=== PATIENT | male | born 1940 | race Caucasian/White ===

== ENCOUNTER 2020-04-10 11:43 | Emergency (ER) | payer OTHER, BC ==
[~2020-04-10] VITALS: Ht 172.7 cm; Wt 88.5 kg
[~2020-04-10 11:43] MED LIST: ALEVE220 MG PO; COUMADIN 2 MG TA2 M1 PO; COUMADIN 5 MG TA5 M1 PO; DIOVAN HCT 80-1 EACH PO; FENOFIBRATE134 MG PO; FISH OIL 1,0001 EAC5 PO; GLIPIZIDE ER5 MG PO; GLIPIZIDE XL5 MG PO; GLUCOPHAGE1000 MG PO; GLUCOPHAGE500 MG PO; GLUCOSAMINE &1 EACH PO; GLUMETZA500 PO; HYZAAR 50-12.51 EACH PO; LEVOTHROID PO; LEVOTHROID150 MC1 PO; LEVOXYL150 MCG PO; LIPITOR 10 MG10 M1 PO; LORTAB 7.5/5001 TA3 PO; METFORMIN 500500 MG PO; MULTIPLE VITAM1 EAC1 PO; MULTIVITAMINS PO; PERCOCET 5-3251 EACH PO; TRILIPIX135 MG PO
[2020-04-10] MEDS ORDERED: MECLIZINE HCL25 MG PO (16:45)
[2020-04-10 17:09] VITALS: BP 141/87
--- NOTE | 2020-04-11 09:28 | EKG ---
[facility] [place] [address] ELECTROCARDIOGRAM REPORT Name: ALAN CHOWDARY Room #: DEP [facility]#: [id number] Admission: 04/10/20 Attend Phys: Discharge: 04/10/20 Date of : 44 Report #: [id number] THIS REPORT FOR: cc: Ralf Mandel MD, Rene P. MD Santiago, Patrick MD [facility] ~ THIS REPORT FOR: //name// [facility] ED Test Date: 2020-04-10 Test Time: 15:53:57 Pat Name: ALAN CHOWDARY Department: Room: Gender: Pulper Tender: [facility] : 1940 Requested By: Maggie Johns Order Number: [id number] MD: Darwin Hernandez Measurements Intervals [place] Rate: 58 P: 48 MT: 203 QRS: 6 QRSD: 106 T: 31 QT: 446 QTc: 439 Interpretive Statements Sinus rhythm Abnormal R-wave progression, early transition Compared to ECG 11/22/2011 08:20:38 Atrial premature complex(es) no longer present Myocardial infarct finding no longer present Electronically Signed On 04-11-2020 9:28:40 MILL WASHER by Darwin Hernandez [email or web address] <ELECTRONICALLY SIGNED> By: Darwin Hernandez MD, FACC 04/11/20 0928 1553 1553 Darwin Hernandez MD, FAC /EPI
== END 2020-04-10 16:58 | disposition home or self-care (01) ==
LOC: ER 11:43
DX: R42 Dizziness and giddiness (principal); I10 Essential (primary) hypertension; E11.9 Type 2 diabetes mellitus without complications; E78.5 Hyperlipidemia, unspecified; E03.9 Hypothyroidism, unspecified; Z79.899 Other long term (current) drug therapy

== ENCOUNTER → 2020-05-07 | Outpatient (CLI) | payer OTHER, BC ==
[~2020-05-07] MED LIST changes: +MECLIZINE HCL25 MG PO
== END ==
LOC: RAD 08:19
PROVIDERS: ATTEND Family Medicine
DX: I67.82 Cerebral ischemia (principal); G31.89 Other specified degenerative diseases of nervous system

== ENCOUNTER 2020-07-28 18:26 | Inpatient (IN) | payer OTHER, BC ==
[~2020-07-28] VITALS: Ht 172.7 cm; Wt 93.9 kg
[2020-07-28 18:28] VITALS: BP 128/73
[2020-07-28 19:16] LABS: ABSOLUTE NEUTROPHILS 5.4 thou/uL (1.4-8.2); BASOPHILS 0.5 % (0.0-2.0); EOSINOPHILS 0.3 % (0.0-3.0); HEMATOCRIT 40.9 % (42.0-52.0); HEMOGLOBIN 13.5 gm/dL (14.0-18.0); LYMPHOCYTES 18.4 % (24.0-44.0); MCH 27.5 pg (26.0-34.0); MCV 83.2 fL (80.0-100.0); PLATELET COUNT 166 thou/uL (150-400); POLYS 75.8 % (36.0-66.0); RBC 4.91 mil/uL (4.50-6.00); RDW 14.5 % (10.5-14.5); WBC 7.1 thou/uL (4.0-11.0)
[2020-07-28 19:30] LABS: ANION GAP 7 mmol/L (7-16); BUN 17 mg/dL (7-18); CALCIUM 8.8 mg/dL (8.5-10.1); CHLORIDE 99 mmol/L (98-107); CO2 26 mmol/L (21-32); CREATININE 0.8 mg/dL (0.7-1.3); GLUCOSE 129 mg/dL (74-106); POTASSIUM 3.7 mmol/L (3.5-5.1); SODIUM 132 mmol/L (136-145)
[2020-07-28 19:40] LABS: URINE BILIRUBIN NEGATIVE (Negative); URINE BLOOD 3+ (Negative); URINE CLARITY CLEAR; URINE COLOR YELLOW; URINE GLUCOSE-RANDOM* NEGATIVE (Negative); URINE KETONES NEGATIVE (Negative); URINE LEUKOCYTES-REFLEX TRACE (Negative); URINE NITRITE-REFLEX NEGATIVE (Negative); URINE PROTEIN (DIPSTICK) NEGATIVE (Negative)
[2020-07-28 19:41] LABS: ALBUMIN 3.8 g/dL (3.4-5.0); SGOT 19 U/L (15-37); SGPT 23 U/L (16-63); TOTAL BILIRUBIN 0.8 mg/dL (0.2-1.0); TOTAL PROTEIN 6.8 g/dL (6.4-8.2); TROPONIN-I <0.06 ng/mL (<0.06)
[2020-07-28 20:00] LABS: BACTERIA-REFLEX 1-9 Few /HPF (None Seen); CASTS None Seen /LPF (None Seen); CRYSTALS None Seen /LPF (None Seen); MUCUS 0-3 Light strn/LPF (None Seen); SQUAMOUS 0-3 Few /LPF (0-3); URINE RBC >20 Many /HPF (0-2); URINE WBC-REFLEX 0-5 Rare /HPF (0-5)
--- NOTE | 2020-07-28 21:25 | NUR ---
PTS DAUGHTER STATES SHE IS NOT HAPPY WITH HIS CARE. WILL NOT STATE WHY. IS REQUESTING A TRANSFER TO
[2020-07-29] VITALS (8 sets, daily range): BP systolic 94–120; BP diastolic 52–78
[2020-07-29] MEDS ORDERED: PROSCAR 5MG TABL5 M1 PO (02:42)
[2020-07-29] MEDS ORDERED: LEVO-T100 MCG PO (02:42)
[2020-07-29] MEDS ORDERED: FLOMAX0.4 MG PO (02:42)
--- NOTE | 2020-07-29 02:54 | NUR ---
Teodora-Daughter, Clem-Son,
--- NOTE | 2020-07-29 06:03 | NUR ---
FAMILY NOTIFIED OF PT ROOM AVAILABILITY.
--- NOTE | 2020-07-29 07:17 | EKG ---
[place] [address] 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: torrie : 1940 Requested By: Isidro Aviles Order Number: [id number] MD: Darwin Henrandez Measurements Intervals [place] Rate: 76 P: 42 WA: 188 QRS: 3 QRSD: 111 T: 21 QT: 421 QTc: 474 Interpretive Statements Sinus rhythm Abnormal R-wave progression, early transition Borderline T wave abnormalities Compared to ECG 04/10/2020 15:53:57 T-wave abnormality now present Electronically Signed On 07-29-2020 7:17:33 MINER by Darwin Hernandez [email or web address] <ELECTRONICALLY SIGNED> By: Darwin Hernandez MD, [facility] 07/29/20 0717 184 40 Darwin Hernandez MD, FACC /EPI
--- NOTE | 2020-07-29 07:30 | NUR ---
ASSUMED CARE OF PT FROM ED AT 0620HRS. PT WAS ORIENTED TO THE UNIT AND HIS ROOM. TELE MONITORING STARTED. FLUIDS CONTINUED. FALL PRECAUTION IN PLACE. PT IS DNR. REPORT GIVEN TO ONCOMING RN TO COMPLETE ADMISSION.
--- NOTE | 2020-07-29 09:52 | 2DMMODE ---
[facility] [place] [address] 2 D/M-MODE ECHOCARDIOGRAM Name: ALAN CHOWDARY Room #: 459-P ADM IN M.R.#: [id number] Admission: 07/29/20 Attend Phys: Zachary Ritter Discharge: Date of : 44 Report #: [id number] THIS REPORT FOR: cc: Ralf Mandel MD, Rene P. MD Santiago, Patrick MD [facility] ~ APPROVED REPORT Study performed: 07/29/2020 08:44:30 EXAM: Comprehensive 2D, Doppler, and color-flow Echocardiogram Patient Location: Bedside Room #: 459 Status: routine BSA: 2.02 HR: 65 bpm BP: 107/73 mmHg Rhythm: NSR Other Information Study Quality: Good Indications Diabetes Syncope Hypertension/HDD 2D Dimensions RVDd: 29.18 mm IVSd: 10.06 (7-11mm) LVOT Diam: 19.04 (18-24mm) LVDd: 42.51 mm PWd: 9.84 (7-11mm) Ascending Ao: 33.60 (22-36mm) LVDs: 25.02 (25-40mm) Left Atrium: 45.74 (27-40mm) Aortic Root: 36.82 mm IVC: 18.00 mm Volumes Left Atrial Volume (Systole) Single Plane 4CH: 33.42 mL Single Plane 2CH: 50.14 mL LA ESV Index: 25.00 mL/m2 Aortic Valve AoV Peak Prudencio.: 1.53 m/s AO Peak Gr.: 9.41 mmHg LVOT Max P.30 mmHg [facility] [address] [place] [address] 2 D/M-MODE ECHOCARDIOGRAM Name: ALAN CHOWDARY Room #: 459-P [facility]#: [id number] Admission: 07/29/20 Attend Phys: Zachary Mojica Jul Discharge: Date of : 44 Report #: [id number] LVOT Max V: 1.15 m/s ANNABEL Vmax: 2.14 cm2 Mitral Valve E/A Ratio: 1.0 MV Decel. Time: 258.68 ms MV E Max Prudencio.: 0.75 m/s MV A Prudencio.: 0.75 m/s MV PHT: 75.02 ms IVRT: 92.27 ms Pulmonary Valve PV Peak Prudencio.: 1.03 m/s PV Peak Gr.: 4.27 mmHg Pulmonary Vein P Vein S: 0.42 m/s P Vein A: 0.27 m/s P Vein D: 0.44 m/s P Vein A Dur.: 170.7 msec P Vein S/D Ratio: 0.95 Left Ventricle The left ventricle is normal size. There is normal LV segmental wall motion. There is normal left ventricular wall thickness. Left ventricular systolic function is normal. The left ventricular ejection fraction is within the normal range. LVEF is 60-65%. Grade II - pseudonormal filling dynamics. Right Ventricle The right ventricle is normal size. The right ventricular systolic function is normal. Atria The left atrium size is normal. The right atrium size is normal. Aortic Valve The aortic valve is normal in structure. No aortic regurgitation is present. There is no aortic valvular stenosis. Mitral Valve The mitral valve is normal in structure. There is no mitral valve regurgitation noted. No evidence of mitral valve stenosis. Tricuspid Valve The tricuspid valve is normal in structure. There is no tricuspid valve regurgitation noted. [facility] [address] [address] 2 D/M-MODE ECHOCARDIOGRAM Name: ALAN CHOWDARY Room #: 459-P [facility] IN .R.#: [id number] Admission: 07/29/20 Attend Phys: Zachary Brooks Discharge: Date of : 44 Report #: [id number] Pulmonic Valve The pulmonary valve is normal in structure. There is no pulmonic valvular regurgitation. Great Vessels The aortic root is normal in size. IVC is normal in size and collapses >50% with inspiration. Pericardium There is no pericardial effusion. <Conclusion> Normal left ventricular size/wall thickness Ejection fraction 60% Normal right ventricular size/function Normal atrial size Color-flow Doppler study was performed of the aortic/mitral/tricuspid/pulmonary valve Normal aortic/mitral valve structure and function No evidence of tricuspid valve insufficiency No pericardial effusion <ELECTRONICALLY SIGNED> By: Darwin Hernandez MD, FACC 07/29/20951 1 1 Darwin Hernandez MD, FAC /INF
--- NOTE | 2020-07-29 15:13 | NUR ---
Case opened to follow for dc planning needs. Scientist Propagator visited with the pt's dtr teodora at bedside. Pt sleeping most of the day due to low blood sugar issues and being in the ER during the night. Pt's dtr Teodora reports that the pt is normally indep with gait and adl's,active outside the home, drives and does his own shopping, errands and medical mngt. His PCP is Dr. Mandel. The pt's emergency contacts are his dtr Teodora and eldest son Clem garrido. Son Zhao recently moved in with the pt but works daytime hours and is only home at night. No DME or HH history. He has 2 steps to enter the home thru his garage and laundry is on the main level. He is retired and . 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 He has rec'd both of his covid vacines. Cm role introduced. Teodora works [employer] and is able to help as needed at dc. PT/OT evals pending. Will follow along should HH or DME referrals be recommended.
--- NOTE | 2020-07-29 16:28 | NUR ---
Assume pt care from the night nurse. Pt is alert & oriented x4. Pt is up ad chela. Taken & printed picture of patient's wound on R elbow. Pt had hearing aid and reading glasses at the bedside. BG 42 @ 1201 taken by student financial aid manager. Double check to make sure BG was low, recheck @ 1205 & BG was 40. Given 2 glucose tablet & recheck BG. BG was 49 @ 1223. Given additional 2 glucose tablet & recheck again. BG was 65 @ 1241. Given 1 orange juice & recheck BG, BG was still 65 @ 1307. Inform Dr. Ritter about pt BG was low via myairmail @ 1338 & 1344. Given Dextrose 10% IVPB and recheck BG again. Dr. Ritter called and verbalize order. Recheck BG again and BG still low. Given dextrose 50% water IV push @ 1618. Recheck BG @ 1624 & BG was 139. Continue to monitor BG. Daughter at the bedside. Daughter's patient stated that pt had bloody urine @ 1515. Bed on the lowest position, side rails up and call light within reach.
--- NOTE | 2020-07-30 03:58 | NUR ---
ASSUMED CARE OF PT AT SHIFT CHANGE. PT IS AOX3-4 AND LETS NEEDS BE KNOWN. FALL PRECAUTION IN PLACE. PT IS ABLE TO AMBULATE WITH STAND BY ASSIST. AVF AND ABX CONTINUED. ASSESSMENT CHARTED. PT RAN SR ON TELE. PT WAS ABLE TO GET COMFORTABLE AND SLEEP PART OF THE SHIFT. VSS AND FSBG STABLE. NO S/S OF ACUTE DISTRESS. WILL CONTINUE TO MONITOR.
--- NOTE | 2020-07-30 12:37 | NUR ---
Note Given: Y Facility List Provided:Y Facility Tato: None chosen at this time Marysol Melo NP discussed BPCI with patient today
--- NOTE | 2020-07-30 14:41 | NUR ---
CARE TEAM INDICATED THAT PT IS PROGRESSING TOWARD GOAL OF DISCHARGING HOME. CARE TEAM INDICATED THAT PT MAY BE MEDICALLY STABLE TO DC HOME TOMORROW. CM FOLLOWING REGARDING DC PLANNING.
--- NOTE | 2020-07-30 17:19 | NUR ---
ASSUMED CARE OF PATIENT AT SHIFT CHNAGE. ASSESSMENT CHARTED. MEDICATIONS ADMINISTERED PER EMAR. VSS. PATIENT IS A&OX4 AND MAKES NEEDS KNOWN. PATIENT IS UP WITH STAND BY ASSISTANCE AND TOLERATING WELL. PT/OT WORKED W PATIENT W NO ISSUES. MEDICAL TEAM IS FOLLOWING FSBS D/T HYPOGLYCEMIA. PATIENT IS RECIEVING DEXTROSE ON L AC; PATIENT INSTRUCTED TO TRY TO MAINTAIN ARM STRAIGHT TO AVOID PRESSURE ALARM FROM GOING OFF. URINE STILL DARK ORANGE D/T AZO PILL. PATIENT REQUESTED FLOMAX TO BE GIVEN W 2100 MEDS AND RX RECONCILATION UPDATED. WILL ENDORSE TO NOC RN. PLAN FOR PATIENT TO RETURN HOME W HH DEPENDING ON MEDICAL TEAM OPINION. PATIENT IS MAKING PROCESS. WILL CONTINUE TO MONITOR AND FOLLOW PLAN OF CARE
[2020-07-30 20:22] VITALS: BP 118/73
[2020-07-30 20:33] LABS: GLYCOHEMOGLOBIN (HGB A1C) 6.2 % (4.8-5.6)
--- NOTE | 2020-07-31 03:33 | NUR ---
ASSUMED CARE OF PT AT 1900HRS. PT AOX4 AND LETS NEEDS BE KNOWN. ASSESSMENT CHARTED. PT RAN NSR ON TELE. PT DENIED PAIN, NAUSEA OR SOA. IVF AND ABX CONTINUED. PT HAS URINARY FREQUENCY. NO BLOOD NOTED WITH URINE THIS SHIFT. PT WAS ABLE TO GET COMFORTABLE AND SLEEP PART OF THE SHIFT. VSS AND NO S/S OF ACUTE DISTRESS. WILL CONTINUE TO MONITOR FOR CHANGES.
[2020-07-31 07:13] VITALS: BP 111/61
[2020-07-31 10:51] VITALS: BP 111/61
--- NOTE | 2020-07-31 11:05 | NUR ---
ASSUMED CARE OF PATIENT AT SHIFT CHANGE. ASSESSMENT CHARTED. MEDICATIONS ADMINISTERED PER EMAR. VSS. PATIENT IS A&OX4 AND ABLE TO MAKE NEEDS KNOWN. IS A SBA BUT HAS A STEADY GAIT. FSBS STABLE THIS SHIFT. PROVIDER SPOKE W PATIENT AND DETERMINED PATIENT MEDICALLY STABLE TO DISCHARGE. IV DISCONTINUED, INSTRUCTIONS GIVEN. PATIENT WHEELED OUT TO MAIN ENTRANCE WITH DIAMOND WHEEL EDGER NOW. VOICED NO NEEDS AT DISCHARGE.
--- NOTE | 2020-07-31 13:32 | NUR ---
CARE TEAM INDICATED PT IS MEDCIALLY STABLE TO DC HOME THIS DAY. PHYSICIAN ORDERED HH SERVICES. CM SPOKE WITH PT'S DTR DARÍO AND SHE SPOUSE WITH FAMILY MEMBER WHO WORKS AT [employer] RECOMMENDED [employer] PROVIDERS. DTR INDICATED THAT REFERRAL COULD BE SENT TO [facility] FOR [facility]VIEW FOR POSSIBLE ADMISSION. PT DC'D HOME VIA FAMILY. NO OTHER CM INTERVENTION INDICATED. CASE CLOSED.
[2020-07-31 13:33] VITALS: BP 111/61
--- NOTE | 2020-07-31 14:05 | NUR ---
FAXED REFERRAL TO [facility] SPOKE WITH ROXANNE IN ADM SHE RECEIVED REFERRAL/DC ORDERS/SUMMRY AND WILL ARRANGE VISITS WITH PT.
== END 2020-07-31 11:18 | disposition home health service (06) | DRG 690 ==
LOC: ER 18:26 → EROBS 07-29 00:50 → 4W 07-29 00:50
PROVIDERS: Nurse Practitioner Family; Physician Assistant; ADMIT Hospitalist; ATTEND Hospitalist
DX: N39.0 Urinary tract infection, site not specified (principal); I10 Essential (primary) hypertension; E11.9 Type 2 diabetes mellitus without complications; E78.00 Pure hypercholesterolemia, unspecified; E03.9 Hypothyroidism, unspecified; Z96.652 Presence of left artificial knee joint; N40.1 Benign prostatic hyperplasia with lower urinary tract symptoms; T50.Z95A Adverse effect of other vaccines and biological substances, initial encounter; R53.81 Other malaise; E53.8 Deficiency of other specified B group vitamins; Z98.42 Cataract extraction status, left eye; Z87.891 Personal history of nicotine dependence; Y92.89 Other specified places as the place of occurrence of the external cause
CPT/HCPCS: 10045